=== PATIENT | male | born 1980 | race Two or more races ===

== ENCOUNTER → 2017-02-23 | Outpatient (REF) | payer OTHER | LOC: M SMT 09:50 | PROVIDERS: ATTEND Urology | DX: Z30.2 Encounter for sterilization (principal) ==

== ENCOUNTER 2017-06-29 11:24 | Emergency (ER) | payer OTHER ==
[2017-06-29] MEDS: AUGMENTIN 875 MG TAB PO (15:12)
== END 2017-06-29 15:14 | disposition home or self-care (01) ==
LOC: M ED 11:24
DX: J01.90 Acute sinusitis, unspecified (principal); J20.9 Acute bronchitis, unspecified; Z79.899 Other long term (current) drug therapy; J30.89 Other allergic rhinitis
CPT/HCPCS: 87804

== ENCOUNTER → 2017-08-23 | Outpatient (REF) | payer OTHER | LOC: M LAB REF 18:28 | DX: J02.9 Acute pharyngitis, unspecified (principal) | CPT/HCPCS: 87070 ==

== ENCOUNTER 2021-05-30 11:36 | Day surgery (SDC) | payer OTHER ==
[~2021-05-30] VITALS: Ht 175.3 cm; Wt 86.2 kg
[~2021-05-30 11:36] MED LIST: AUGM875T28 PO; BUPR150T5; DICY10CA13 PO; FLUO20CA22 PO; LIDOCAINE 2% 100MG/5ML SDV (FOR ANES.) As Ordered ONE; MUCI600T37 PO; NS 1,000 ML IV ONE; PRED20TA PO; PROAAER10 INH; SILD50TA; SILD50TA2 PO; propofoL 200 MG/20 ML VIAL As Ordered ONE
--- OUTSIDE RECORDS SUMMARY | 2021-05-30 11:41 | CCD | Continuity of Care Document ---
Author Author Negrito PHILLIPS Organization Unknown Address [address] [place] [address] Phone [phone] Care Team Providers Care Sociology Research Assistant Name Role Phone Umu Menjivar DO AUT Problems Description No Information Available Social History Type Date Description Comments Sex Unknown Allergies and adverse reactions Description No Information Available Medications Description No Information Available Immunizations Description No Information Available Vital Signs Description No Information Available Results Description No Information Available Procedures Description No Information Available Medical Devices Description No Information Available Encounters Description No Information Available Assessments Date Code Description Provider 05/11/2021 Z20.828 Contact with and (valdes spected) exposure to other viral communicable diseases BEN Sanchez Plan of Treatment No Information Available Functional Status Description No Information Available Mental Status Description No Information Available Referrals Description No Information Available
--- OUTSIDE RECORDS SUMMARY | 2021-05-30 11:41 | CCD | Continuity of Care Document ---
Author Author Negrito LARA Organization Unknown Address [address], [address] [place] [address] Phone [phone] Care Team Providers Care K 9 Handler/ Deputy Name Role Phone Israel Fernandes AUTM [phone] Umu Menjivar D.O. AUTM Problems Description No Information Available Social History Type Date Description Comments Sex Unknown ETOH Use 4 A Week beer Tobacco Use Start: Unknown Denies Smoking Recreational Drug Use Denies Drug Use Allergies and adverse reactions Description No Known Drug Allergies Medications Active Medications SIG Qnty Indications Ordering Provide r Date Fluoxetine HCL 20mg Capsules 1 tab by mouth every day Unknown Sildenafil Citrate 50mg Tablets as needed Unknown Fluticasone Propionate 50mcg/Act Suspension 1 spray to each nostril daily Unknown Dicyclomine HCL 10mg Capsules 1 by mouth every 6 hours as needed abdominal cramping Unkno wn Immunizations Description No Information Available Vital Signs Date Vital Result Comment 04/10/2021 9:39am BP Systolic 117 mmHg BP Diastolic 76 mmHg Heart Rate 64 /min Body Temperature 98.3 F Height 68.75 inches 5'8.75" Weight 121.75 lb BMI (Body Mass Index) 18.1 kg/m2 [place] Body Weight 154 lb Weight 55.226 kg BSA (Body Surface Area) 1.67 m2 Results Description No Information Available Procedures Date Code Description Status 04/10/2021 65250 Office/Outpatient New Moderate M DM 45-59 Minutes Completed Medical Devices Description No Information Available Encounters Type Date Location Provider Dx Diagnosis Office Visit 04/10/2021 9:45a [facility] BEN Nash Z12.11 Encounter for screening for malignant ne oplasm of colon Z80.0 Family history of malignant neoplasm of digestive organs Assessments Date Code Description Provider 04/10/2021 Z12.11 Encounter for screening for jeferson gnant neoplasm of colon BEN Whitehead 04/10/2021 Z80.0 Family history of malignant neop lasm of digestive organs BEN Whitehead Plan of Treatment Future Appointment(s):* 06/12/2021 10:00 am - BEN Whitehead at [facility] * 05/30/2021 1:30 pm - Geovany Hernández JR, MD at [facility] 04/10/2021 - BEN Whitehead* Z12.11 Encounter for screening for malignant neoplasm of colon * Z80.0 Family history of malignant neoplasm of digestive organs Functional Status Description No Information Available Mental Status Description No Information Available Referrals Refer to Dr Reason for Referral Status Appt Date Concepción Lara, P.A. COLONOSCOPY Scheduled 021 [address] [facility] [address] [place] [address] [place] [address] [phone]
--- OUTSIDE RECORDS SUMMARY | 2021-05-30 11:41 | CCD | Continuity of Care Document ---
Author Author Negrito BARBA Organization [place] [address] Phone [phone] Care Team Providers Care Crester Name Role Phone Umu Menjivar D.O. AUTM [facility] AUTM [phone] Problems Active Problems Provider Date Obsessive-compulsive disorder Umu Menjivar D.O. Ons et: 04/22/2017 Sciatica Umu Menjivar D.O. Onset: 2016 Low back pain Umu Menjivar D.O. Onset: 2016 Social History Type Date Description Comments Sex Unknown ETOH Use Rarely consumes alcohol Tobacco Use Start: Unknown Patient has never smoked Recreational Drug Use Denies Drug Use Exercise Type/Frequency Walks 5 times a week Sun Exposure Uses sunscreen Seat Belt/Car Seat Always uses seat belt Allergies, Adverse Reactions, Alerts Description No Known Drug Allergies Medications Active Medications SIG Qnty Indications Ordering Provide r Date Dicyclomine HCL 10mg Capsules take one tablet every 8 hours by mouth as needed for diarrhea. 90caps Umu Roblero D.O. 03/27/2021 Fluoxetine HCL 20mg Capsules 1 by mouth every day Unknown Medications Administered in Office Medication SIG Qnty Indications Ordering Provider Date Injection Ketorolac Tromethamine Per 15 MG (Toradol) Injection BEN Cross 09/22/2019 Immunizations CPT Code Status Date Vaccine Lot # [id number] Given 03/27/2021 Influenza Virus Vaccine, Quadrivalent, Slit Virus, Im Use [id number] Given 03/26/2020 Influenza Virus Vaccine, Quadrivalent, Split, Preservative Free [id number] Vital Signs Date Vital Result Comment 03/27/2021 8:34am BP Systolic 120 mmHg BP Diastolic 70 mmHg Height 68.2 inches 5'8.20" Weight 188.00 lb BMI (Body Mass Index) 28.4 kg/m2 Heart Rate 90 /min Respiratory Rate 16 /min Body Temperature 96.8 F O2 % BldC Oximetry 99 % [place] Body Weight 154 lb 07/06/2020 9:01am BP Systolic 124 mmHg BP Diastolic 72 mmHg Height 68.2 inches 5'8.20" Weight 190.38 lb BMI (Body Mass Index) 28.8 kg/m2 Heart Rate 91 /min Respiratory Rate 18 /min Body Temperature 97.8 F O2 % BldC Oximetry 99 % [place] Body Weight 154 lb Results Description No Information Available Procedures Description No Information Available Medical Devices Description No Information Available Encounters Description No Information Available Assessments Date Code Description Provider 03/27/2021 Z00.00 Encounter for genera l adult medical examination without abnormal findings BEN Randall 03/27/2021 F42.9 Obsessive-compulsive disorder, u nspecified BEN Randall 03/27/2021 Z80.0 Family history of malignant neop lasm of digestive organs BEN Randall Plan of Treatment Future Appointment(s):* 03/28/2022 9:00 am - BEN Randall at [facility] 03/27/2021 - BEN Randall* Z00.00 Encounter for general adult medical examination without abnormal findings* Comments:* Normal preventative exam * Follow up:* yearly * F42.9 Obsessive-compulsive disorder, unspecified * Z80.0 Family history of malignant neoplasm of digestive organs* Referral:* Geovany Hernández M.D., Surgery,General Functional Status Description No Information Available Mental Status Description No Information Available Referrals Refer to Reason for Referral Status Appt Date Geovany Hernández M.D. Family history of colon canc er in paternal grandfather whom in his late 40's early 50's. Negrito would like a routine screening colonoscopy Created [facility] [address] [place], [place] [address] [phone]
--- OUTSIDE RECORDS SUMMARY | 2021-05-30 11:41 | CCD | Continuity of Care Document ---
Author Author Negrito BARBA Organization Unknown [place] [address] Phone [phone] Care Team Providers Care Chili Maker Name Role Phone Umu Menjivar D.O. AUTM [phone] [facility] AUTM [phone] Geovany Hernández M.D. AUTM [phone] Problems Active Problems Provider Date Obsessive-compulsive disorder [...] Medication SIG Qnty Indications Ordering Provider Date Immunization Administration Single Or Co mbination Injection BEN Randall Injection Ketorolac Tromethamine Per 15 MG (Toradol) Injection BEN Cross 09/22/2019 Immunizations CPT Code Status Date Vaccine Lot # [id number] Given 03/27/2021 Influenza Virus Vaccine, Quadrivalent, Slit Virus, Im Use [id number] Given 03/26/2020 Influenza Virus Vaccine, Quadrivalent, Split, Preservative Free [id number] Vital Signs Date Vital Result Comment 03/27/2021 8:34am BP Systolic 120 mmHg BP Diastolic 70 mmHg Height 68.2 inches 5'8.20" Weight 188.00 lb BMI (Body Mass Index) 28.4 kg/m2 Heart Rate 90 /min Respiratory Rate 16 /min Body Temperature 96.8 F O2 % BldC Oximetry 99 % [place] Body Weight 154 lb 07/06/2020 9:01am BP Systolic 124 mmHg BP Diastolic 72 mmHg Height 68.2 inches 5'8.20" Weight 190.38 lb BMI (Body Mass Index) 28.8 kg/m2 Heart Rate 91 /min Respiratory Rate 18 /min Body Temperature 97.8 F O2 % BldC Oximetry 99 % [place] Body Weight 154 lb Results Description No Information Available Procedures Date Code Description Status 03/27/2021 71355 Preventive Visit Est 40-64 Yrs C ompleted Medical Devices Description No Information Available Encounters Type Date Location Provider Dx Diagnosis Office Visit 03/27/2021 8:30a [facility] BEN Randall Z00.00 Encntr for general adult med ical exam w/o abnormal findings F42.9 Obsessive-compulsive disorde r, unspecified Z80.0 Family history of malignant neoplasm of digestive organs Z23 Encounter for immunization Assessments Date Code Description Provider 03/27/2021 Z00.00 Encntr for general adult medical exam w/o abnormal findings BEN Randall 03/27/2021 F42.9 Obsessive-compulsive disorder, u nspecified BEN Randall 03/27/2021 Z80.0 Family history of malignant neop lasm of digestive organs BEN Randall 03/27/2021 Z23 Encounter for immunization BEN Medina Plan of Treatment Future Appointment(s):* 03/28/2022 9:00 am - BEN Randall at [facility] Functional Status Description No Information Available Mental Status Description No Information Available Referrals Refer to Reason for Referral Status Appt Date Geovany Hernández M.D. Family history of colon canc er in paternal grandfather whom in his late 40's early 50's. Negrito would like a routine screening colonoscopy Sent [address] [id number] [phone]
--- OUTSIDE RECORDS SUMMARY | 2021-05-30 11:41 | CCD | Continuity of Care Document ---
Author Author Negrito PHILLIPS Organization Unknown Address [address] [place] [address] Phone [phone] Care Team Providers Care Order Runner Name Role Phone Umu Menjivar DO AUT [phone] Problems Description No Information Available Social History [...]
--- OUTSIDE RECORDS SUMMARY | 2021-05-30 11:41 | CCD | Continuity of Care Document ---
Author Negrito Gonzales Organization Unknown Address [address] [facility], [address] [place] [address] Phone [phone] Care Team Providers Care Chancellor Name Role Phone Israel Fernandes AUTM [phone] Umu Menjivar D.O. AUTM [phone] Problems Description No Information Available Social [...] lb BMI (Body Mass Index) 18.1 kg/m2 [place] Body Weight 154 lb Weight 55.226 kg BSA (Body Surface Area) 1.67 m2 Results Description No Information Available Procedures Description No Information Available Medical Devices Description No Information Available Encounters Description No Information Available Assessments Date Code Description Provider 04/10/2021 Z12.11 Encounter for screening for jeferson gnant neoplasm of colon BEN Whitehead 04/10/2021 Z80.0 Family history of malignant neop lasm of digestive organs BEN Whitehead Plan of Treatment Future Appointment(s):* 06/12/2021 10:00 am - BEN Whitehead at [facility] * 05/30/2021 1:30 pm - Geovany Hernández JR, MD at [facility] 04/10/2021 - BEN Whitehead* Z12.11 Encounter for screening for malignant neoplasm of colon * Z80.0 Family history of malignant neoplasm of digestive organs Functional Status Description No Information Available Mental Status Description No Information Available Referrals Refer to Reason for Referral Status Appt Date Concepción Lara, P.A. COLONOSCOPY Scheduled 021 [address] [facility] [address] [place] [address] [place], [place] [id number] [phone]
--- OUTSIDE RECORDS SUMMARY | 2021-05-30 11:42 | CCD ---
Author Author [facility] Organization [facility] Address Unknown Phone Unavailable Care Team Providers Care Library Technology Instructor Name Role Phone CECILIO CALLAHAN MD Unavailable Unavailable CECILIO CALLAHAN MD Unavailable Unavailable CECILIO CALLAHAN MD Unavailable Unavailable CECILIO CALLAHAN MD Unavailable Unavailable CECILIO CALLAHAN MD Unavailable Unavailable CECILIO CALLAHAN MD Unavailable Unavailable CECILIO CALLAHAN MD Unavailable Unavailable CECILIO CALLAHAN MD Unavailable Unavailable CECILIO CALLAHAN MD Unavailable Unavailable CECILIO CALLAHAN MD Unavailable Unavailable CECILIO CALLAHAN MD Unavailable Unavailable CECILIO CALLAHAN MD Unavailable Unavailable CECILIO CALLAHAN MD Unavailable Unavailable CECILIO CALLAHAN MD Unavailable Unavailable CECILIO CALLAHAN MD Unavailable Unavailable CECILIO CALLAHAN MD Unavailable Unavailable CECILIO CALLAHAN MD Unavailable Unavailable CECILIO CALLAHAN MD Unavailable Unavailable CECILIO CALLAHAN MD Unavailable Unavailable CECILIO CALLAHAN MD Unavailable Unavailable CECILIO CALLAHAN MD Unavailable Unavailable CECILIO CALLAHAN MD Unavailable Unavailable CECILIO CALLAHAN MD Unavailable Unavailable CECILIO CALLAHAN MD Unavailable Unavailable CECILIO CALLAHAN MD Unavailable Unavailable CECILIO CALLAHAN MD Unavailable Unavailable CECILIO CALLAHAN MD Unavailable Unavailable CECILIO CALLAHAN MD Unavailable Unavailable CHROSTOWSKI, CECILIO MD Unavailable Unavailable CHROSTOWSKI, CECILIO MD Unavailable Unavailable CHROSTOWSKI, CECILIO MD Unavailable Unavailable CHROSTOWSKI, CECILIO MD Unavailable Unavailable CHROSTOWSKI, CECILIO MD Unavailable Unavailable CHROSTOWSKI, CECILIO MD Unavailable Unavailable CHROSTOWSKI, CECILIO MD Unavailable Unavailable CHROSTOWSKI, CECILIO MD Unavailable Unavailable CHROSTOWSKI, CECILIO MD Unavailable Unavailable CHROSTOWSKI, CECILIO MD Unavailable Unavailable CHROSTOWSKI, CECILIO MD Unavailable Unavailable MARCUS-GARRY, MEDARDO DO Unavailable Unavailable MARCUS-GARRY, MEDARDO DO Unavailable Unavailable MARCUS-GARRY, MEDARDO DO Unavailable Unavailable MARCUS-GARRY, MEDARDO DO Unavailable Unavailable MARCUS-GARRY, MEDARDO DO Unavailable Unavailable MARCUS-GARRY, MEDARDO DO Unavailable Unavailable MARCUS-GARRY, MEDARDO DO Unavailable Unavailable MARCUS-GARRY, MEDARDO DO Unavailable Unavailable MARCUS-GARRY, MEDARDO DO Unavailable Unavailable MARCUS-GARRY, MEDARDO DO Unavailable Unavailable MARCUS-GARRY, MEDARDO DO Unavailable Unavailable MARCUS-GARRY, MEDARDO DO Unavailable Unavailable MARCUS-GARRY, MEDARDO DO Unavailable Unavailable MARCUS-GARRY, MEDARDO DO Unavailable Unavailable MARCUS-GARRY, MEDARDO DO Unavailable Unavailable MARCUS-GARRY, MEDARDO DO Unavailable Unavailable MARCUS-GARRY, MEDARDO DO Unavailable Unavailable MARCUS-GARRY, MEDARDO DO Unavailable Unavailable MARCUS-GARRY, MEDARDO DO Unavailable Unavailable MARCUS-GARRY, MEDARDO DO Unavailable Unavailable MARCUS-GARRY, MEDARDO DO Unavailable Unavailable MARCUS-GARRY, MEDARDO DO Unavailable Unavailable MARCUS-GARRY, MEDARDO DO Unavailable Unavailable MARCUS-GARRY, MEDARDO DO Unavailable Unavailable MARCUS-GARRY, MEDARDO DO Unavailable Unavailable MARCUS-GARRY, MEDARDO DO Unavailable Unavailable MARCUS-GARRY, MEDARDO DO Unavailable Unavailable MARCUS-GARRY, MEDARDO DO Unavailable Unavailable MARCUS-GARRY, MEDARDO DO Unavailable Unavailable MARCUS-GARRY, MEDARDO DO Unavailable Unavailable MRACUS-GARRY, MEDARDO DO Unavailable Unavailable MARCUS-GARRY, MEDARDO DO Unavailable Unavailable MARCUS-GARRY, MEDARDO DO Unavailable Unavailable MARCUS-GARRY, MEDARDO DO Unavailable Unavailable MARCUS-GARRY, MEDARDO DO Unavailable Unavailable MARCUS-GARRY, MEDARDO DO Unavailable Unavailable MARCUS-GARRY, MEDARDO DO Unavailable Unavailable MARCUS-GARRY, MEDARDO DO Unavailable Unavailable MARCUS-GARRY, MEDARDO DO Unavailable Unavailable MARCUS-GARRY, MEDARDO DO Unavailable Unavailable MARCUS-GARRY, MEDARDO DO Unavailable Unavailable MARCUS-GARRY, MEDARDO DO Unavailable Unavailable MARCUS-GARRY, MEDARDO DO Unavailable Unavailable MARCUS-GARRY, MEDARDO DO Unavailable Unavailable MARCUS-GARRY, MEDARDO DO Unavailable Unavailable MARCUS-GARRY, MEDARDO DO Unavailable Unavailable MARCUS-GARRY, MEDARDO DO Unavailable Unavailable MARCUS-GARRY, MEDARDO DO Unavailable Unavailable MARCUS-GARRY, MEDARDO DO Unavailable Unavailable MARCUS-GARRY, MEDARDO DO Unavailable Unavailable MARCUS-GARRY, MEDARDO DO Unavailable Unavailable MARCUS-GARRY, MEDARDO DO Unavailable Unavailable MARCUS-GARRY, MEDARDO DO Unavailable Unavailable MARCUS-GARRY, MEDARDO DO Unavailable Unavailable MARCUS-GARRY, MEDARDO DO Unavailable Unavailable MARCUS-GARRY, MEDARDO DO Unavailable Unavailable MARCUS-GARRY, MEDARDO DO Unavailable Unavailable MARCUS-GARRY, MEDARDO DO Unavailable Unavailable MARCUS-GARRY, MEDARDO DO Unavailable Unavailable MARCUS-GARRY, MEDARDO DO Unavailable Unavailable MARCUS-GARRY, MEDARDO DO Unavailable Unavailable MARCUS-GARRY, MEDARDO DO Unavailable Unavailable MARCUS-GARRY, MEDARDO DO Unavailable Unavailable MARCUS-GARRY, MEDARDO DO Unavailable Unavailable MARCUS-GARRY, MEDARDO DO Unavailable Unavailable MARCUS-GARRY, MEDARDO DO Unavailable Unavailable MARCUS-GARRY, MEDARDO DO Unavailable Unavailable MARCUS-GARRY, MEDARDO DO Unavailable Unavailable MARCUS-GARRY, MEDARDO DO Unavailable Unavailable MARCUS-GARRY, MEDARDO DO Unavailable Unavailable MARCUS-GARRY, MEDARDO DO Unavailable Unavailable MARCUS-GARRY, MEDARDO DO Unavailable Unavailable MARCUS-GARRY, MEDARDO DO Unavailable Unavailable MARCUS-GARRY, MEDARDO DO Unavailable Unavailable MARCUS-GARRY, MEDARDO DO Unavailable Unavailable MARCUS-GARRY, MEDARDO DO Unavailable Unavailable MARCUS-GARRY, MEDARDO DO Unavailable Unavailable MARCUS-GARRY, MEDARDO DO Unavailable Unavailable MARCUS-GARRY, MEDARDO DO Unavailable Unavailable MARCUS-GARRY, MEDARDO DO Unavailable Unavailable MARCUS-GARRY, MEDARDO DO Unavailable Unavailable MARCUS-GARRY, MEDARDO DO Unavailable Unavailable MARCUS-GARRY, MEDARDO DO Unavailable Unavailable MARCUS-GARRY, MEDARDO DO Unavailable Unavailable MARCUS-GARRY, MEDARDO DO Unavailable Unavailable O'janis, A Israel PA Unavailable Unavailable O'janis, A Israel PA Unavailable Unavailable O'janis, A Israel PA Unavailable Unavailable O'janis, A Israel PA Unavailable Unavailable O'janis, A Israel PA Unavailable Unavailable O'janis, A Israel PA Unavailable Unavailable O'janis, A Israel PA Unavailable Unavailable O'janis, A Israel PA Unavailable Unavailable O'janis, A Israel PA Unavailable Unavailable O'janis, A Israel PA Unavailable Unavailable O'janis, A Israel PA Unavailable Unavailable O'janis, A Israel PA Unavailable Unavailable O'janis, A Israel PA Unavailable Unavailable O'janis, A Israel PA Unavailable Unavailable O'janis, A Israel PA Unavailable Unavailable O'janis, A Israel PA Unavailable Unavailable O'janis, A Israel PA Unavailable Unavailable O'janis, A Israel PA Unavailable Unavailable O'janis, A Israel PA Unavailable Unavailable O'janis, A Israel PA Unavailable Unavailable O'janis, A Israel PA Unavailable Unavailable O'janis, A Israel PA Unavailable Unavailable O'janis, A Israel PA Unavailable Unavailable O'janis, A Israel PA Unavailable Unavailable O'janis, A Israel PA Unavailable Unavailable O'janis, A Israel PA Unavailable Unavailable O'janis, A Israel PA Unavailable Unavailable O'janis, A Israel PA Unavailable Unavailable O'janis, A Israel PA Unavailable Unavailable O'janis, A Israel PA Unavailable Unavailable O'janis, A Israel PA Unavailable Unavailable O'janis, A Israel PA Unavailable Unavailable O'janis, A Israel PA Unavailable Unavailable Lara, L Concepción RPA Unavailable Unavailable Lara, L Concepción RPA Unavailable Unavailable Lara, L Concepción RPA Unavailable Unavailable Lara, L Concepción RPA Unavailable Unavailable Lara, L Concepción RPA Unavailable Unavailable Lara, L Concepción RPA Unavailable Unavailable Lara, L Concepción RPA Unavailable Unavailable Lara, L Concepción RPA Unavailable Unavailable Lara, L Concepción RPA Unavailable Unavailable Lara, L Concepción RPA Unavailable Unavailable Lara, L Concepción RPA Unavailable Unavailable Lara, L Concepción RPA Unavailable Unavailable Lara, L Concepción RPA Unavailable Unavailable Lara, L Concepción RPA Unavailable Unavailable Lara, L Concepción RPA Unavailable Unavailable Lara, L Concepción RPA Unavailable Unavailable Lara, L Concepción RPA Unavailable Unavailable Lara, L Concepción RPA Unavailable Unavailable Lara, L Concepción RPA Unavailable Unavailable Lara, L Concepción RPA Unavailable Unavailable Lara, L Concepción RPA Unavailable Unavailable Lara, L Concepción RPA Unavailable Unavailable Lara, L Concepción RPA Unavailable Unavailable Lara, L Concepción RPA Unavailable Unavailable Lara, L Concepción RPA Unavailable Unavailable Lara, L Concepción RPA Unavailable Unavailable Lara, L Concepción RPA Unavailable Unavailable Lara, L Concepción RPA Unavailable Unavailable Lara, L Concepción RPA Unavailable Unavailable Lara, L Concepción RPA Unavailable Unavailable Lara, L Concepción RPA Unavailable Unavailable Lara, L Concepción RPA Unavailable Unavailable Re-disclosure Warning The records that you are about to access may contain information from federally-assisted alcohol or drug abuse programs. If such information is present, then the following federally mandated warning applies: This information has been disclosed to you from records protected by federal confidentiality rules (42 CFR part 2). The federal rules prohibit you from making any further disclosure of this information unless further disclosure is expressly permitted by the written consent of the person to whom it pertains or as otherwise permitted by 42 CFR part 2. A general authorization for the release of medical or other information is NOT sufficient for this purpose. The Federal rules restrict any use of the information to criminally investigate or prosecute any alcohol or drug abuse patient.The records that you are about to access may contain highly sensitive health information, the redisclosure of which is protected by Article 27-F of the [place] Public Health law. If you continue you may have access to information: Regarding HIV / AIDS; Provided by facilities licensed or operated by the [place] Office of Mental Health; or Provided by the [place] Office for People With Developmental Disabilities. If such information is present, then the following [place] mandated warning applies: This information has been disclosed to you from confidential records which are protected by state law. State law prohibits you from making any further disclosure of this information without the specific written consent of the person to whom it pertains, or as otherwise permitted by law. Any unauthorized further disclosure in violation of state law may result in a fine or fci sentence or both. A general authorization for the release of medical or other information is NOT sufficient authorization for further disc losure. Family History Family Member Name Family Member Gender Family Member Status Date o f Status Description Data Source(s) Unknown Unknown Problem [facility] ([facility]) Unknown Male Problem [facility] [place] Unknown Unknown Problem [facility] ([facility] Encounters Encounter Providers Location Date Indications Data Source(s ) Outpatient Attender: Concepción Gonzalez/Kevin/Hi/Meagan knox 04/10/2021 09:45:00 AM EDT [facility] ([facility] Outpatient Attender: Israel CONTRERAS [facility] 03/27/2021 08:30:00 AM EDT [facility] ([facility] Outpatient Attender: CECILIO CALLAHAN MD Main Office 07/09/2020 07:45:00 AM EST [facility] ([facility]) Outpatient Attender: MEDARDO FREEMAN DO [facility] 07/06/2020 08:00:00 AM EST [facility] ([facility]) Immunizations Vaccine Date Status Description Data Source(s) New in 2012. IIV4 03/27/2021 09:13:00 AM EDT completed [facility] ([facility]) COVID-19 VACCINE Pfizer 09/28/2020 12:00:00 AM EDT completed [facility] Vaccine Series Complete: YESThis Data wa s Submitted to [facility] Via [employer]. COVID-19 VACCINE Pfizer 09/07/2020 12:00:00 AM EST completed [facility] Vaccine Series Complete: NOThis Data was Submitted to [facility] Via [employer]. Medications Medication Brand Name Start Date Product Form Dose Route Admi nistrative Instructions Pharmacy Instructions Status Indications Reaction Description Data Source(s) 10 mg 03/28/2021 12:00:00 AM EDT capsule 90 TAKE ONE CAPSULE BY MOUTH EVERY 8 HOURS NEEDED FOR DIARRHEA TAKE ONE CAPSULE BY MOUTH EVERY 8 HOURS NEEDED FOR DIARRHEA SOLD: 03/30/2021 [facility] Dicyclomine Hydrochloride 10 MG Oral Capsule Dicyclomine HCL 03/27/2021 12:00:00 AM EDT ORAL active MED[facility] ([facility]) Immunization Administration Single Or Combination 03/27/2021 12:00:00 AM EDT completed [facility] ([facility]) Medication administered onsite 50 mg 03/26/2021 12:00:00 AM EDT tablet 6 TAKE ONE TABLET BY MOUTH EVERY DAY NEEDED TAKE ONE TABLET BY MOUTH EVERY DAY NEEDED SOLD: 03/30/2021 [facility] 50 mg 02/11/2021 12:00:00 AM EDT tablet 6 TAKE ONE TABLET BY MOUTH ONCE DAILY NEEDED TAKE ONE TABLET BY MOUTH ONCE DAILY NEEDED SOLD: 02/14/20 [facility] 50 mg 01/01/2021 12:00:00 AM EDT tablet 6 TAKE ONE TABLET BY MOUTH EVERY DAY NEEDED TAKE ONE TABLET BY MOUTH EVERY DAY NEEDED SOLD: 01/01/2021 [facility] Insurance Providers Payer name Policy type / Coverage type Policy ID Covered green party ID Covered green party's relationship to holland Policy [place] Plan Information [facility] [id number] [id number] [facility] [id number] [employer] [id number] [facility] Health Maintenance Organization (HMO) [id number] Family Dependent [id number] [employer] [id number] Commercial [employer] urance [employer]. .[id number] Commercial Insur ance [employer]. .[id number] [employer] .[id number] Commercial Insu gopal Co. [id number] [employer] [id number] S elf [id number] [employer] [id number] S elf [id number] [employer] [id number] Family Dependent [id number] [employer] [id number] S elf [id number] [employer] PPO O [id number] P [id number] [employer] [id number] Family Dependent Problems, Conditions, and Diagnoses No Information Surgeries/Procedures Procedure Description Date Indications Data Source(s) OFFICE OUTPATIENT NEW 45 MINUTES 04/10/2021 12:00:00 A M EDT [facility] ([facility] ) PERIODIC PREVENTIVE MED EST PATIENT 40-64YRS 12:00:00 AM EDT MED[facility] ([facility]) BRNCDILAT RSPSE SPMTRY PRE&POST-BRNCDILAT ADMN 021 12:00:00 AM EST [facility] ([facility]) Omt 7-8 Body Regions 07/06/2020 12:00:00 AM EST [facility] ([facility]) Results ID Date Data Source [id number] 05/11/2021 12:00:00 AM EST [facility] Name Value Range Interpretation Code Description Data Kerri rce(s) Supporting Document(s) SARS-CoV2 Rapid Antigen Negative [facility]MS This lab was ordered by [facility] and reported by [facility]. Procedure Social History Code Duration Value Status Description Data Source(s ) Smoking 07/09/2020 12:00:00 AM EST Patient has never smoked co mpleted Patient has never smoked [facility] ([facility] ) Vital Signs ID Date Data Source UNK Name Value Range Interpretation Code Description Data Source(s) Systolic blood pressure 117 mm[Hg] 117 mm[Hg] [facility] Diastolic blood pressure 76 mm[Hg] 76 mm[Hg] [facility] ([facility]) Heart rate 64 /min 64 /min [facility] Body temperature 98.3 [degF] 98.3 [degF] [facility] ([facility]) Body height 68.75 [in_i] 68.75 [in_i] [facility] ([facility]) 5'8.75" Body weight 121.75 [lb_av] 121.75 [lb_av] [facility] T ([facility]) Body mass index (BMI) [Ratio] 18.1 kg/m2 18.1 k g/m2 [facility] ([facility]) [place] body weight 154 [lb_av] 154 [lb_av] [facility] T ([facility]) Body weight 55.226 kg 55.226 kg [facility] ([facility]) Body surface area Derived from formula 1.67 m2 1.67 m2 [facility] ([facility]) Oxygen saturation in Arterial blood by Pulse oximetry 99 % 99 % [facility] ([facility]) [place] body weight 154 [lb_av] 154 [lb_av] [facility] T ([facility]) Systolic blood pressure 120 mm[Hg] 120 mm[Hg] [facility]) Diastolic blood pressure 70 mm[Hg] 70 mm[Hg] [facility] ([facility]) Body height 68.2 [in_i] 68.2 [in_i] [facility] ([facility]) 5'8.20" Body weight 188.00 [lb_av] 188.00 [lb_av] [facility] T ([facility]) Body mass index (BMI) [Ratio] 28.4 kg/m2 28.4 k g/m2 [facility] ([facility]) Heart rate 90 /min 90 /min [facility] ([facility]) Respiratory rate 16 /min 16 /min [facility] ( [facility]) Body temperature 96.8 [degF] 96.8 [degF] [facility] ([facility]) Body weight 189.12 [lb_av] 189.12 [lb_av] [facility] T ([facility]) Body height 68.75 [in_i] 68.75 [in_i] [facility] 5'8.75" Heart rate 66 /min 66 /min [facility] Respiratory rate 16 /min 16 /min [facility] ( [facility]) Systolic blood pressure 119 mm[Hg] 119 mm[Hg] M EDENT ([facility]) Diastolic blood pressure 77 mm[Hg] 77 mm[Hg] [facility] ([facility]) Body mass index (BMI) [Ratio] 28.1 kg/m2 28.1 k g/m2 [facility] ([facility]) Systolic blood pressure 124 mm[Hg] 124 mm[Hg] ED[facility] ([facility]) Diastolic blood pressure 72 mm[Hg] 72 mm[Hg] [facility] ([facility]) Body height 68.2 [in_i] 68.2 [in_i] [facility] ([facility]) 5'8.20" Body weight 190.38 [lb_av] 190.38 [lb_av] MED[facility] T ([facility]) Body mass index (BMI) [Ratio] 28.8 kg/m2 28.8 k g/m2 [facility] ([facility]) Heart rate 91 /min 91 /min [facility] ([facility]) Respiratory rate 18 /min 18 /min [facility] ( [facility]) Body temperature 97.8 [degF] 97.8 [degF] [facility] ([facility]) Oxygen saturation in Arterial blood by Pulse oximetry 99 % 99 % [facility] ([facility]) [place] body weight 154 [lb_av] 154 [lb_av] MEDEN T ([facility])
--- NOTE | 2021-05-30 12:32 | ROOR ---
Patient Name: Negrito Carter Procedure Date: 05/30/2021 12:19 PM Date of : 1980 Age: 41 Room: [facility] Gender: Male Note Status: Finalized Procedure: Colonoscopy Indications: Screening in patient at increased risk: Family history of 1st-degree relative with colorectal cancer before age 60 years Providers: Geovany Hernández Jr, MD Referring MD: Umu FREEMAN DO Requesting Provider: Medicines: Propofol per Anesthesia Complications: No immediate complications. Procedure: Pre-Anesthesia Assessment: - Prior to the procedure, a History and Physical was performed, and patient medications and allergies were reviewed. The patient is competent. The risks and benefits of the procedure and the sedation options and risks were discussed with the patient. All questions were answered and informed consent was obtained. Patient identification and proposed procedure were verified by the physician and the nurse in the pre-procedure area and in the procedure room. Mental Status Examination: alert and oriented. Airway Examination: normal oropharyngeal airway and neck mobility. Respiratory Examination: clear to auscultation. CV Examination: normal. ASA Grade Assessment: II - A patient with mild systemic disease. After reviewing the risks and benefits, the patient was deemed in satisfactory condition to undergo the procedure. The anesthesia plan was to use moderate sedation / analgesia (conscious sedation). Immediately prior to administration of medications, the patient was re-assessed for adequacy to receive sedatives. The heart rate, respiratory rate, oxygen saturations, blood pressure, adequacy of pulmonary ventilation, and response to care were monitored throughout the procedure. The physical status of the patient was re-assessed after the procedure. The Colonoscope was introduced through the anus and advanced to the cecum, identified by appendiceal orifice and ileocecal valve. The patient tolerated the procedure well. The quality of the bowel preparation was adequate. Findings: The rectum, recto-sigmoid colon, sigmoid colon, descending colon, transverse colon, ascending colon, cecum, appendiceal orifice and ileocecal valve appeared normal. Impression: - The rectum, recto-sigmoid colon, sigmoid colon, descending colon, transverse colon, ascending colon, cecum, appendiceal orifice and ileocecal valve are normal. - No specimens collected. Recommendation: - Discharge patient to home (ambulatory). - Repeat colonoscopy in 5 years for screening purposes. Procedure Code(s): --- Professional --- 31944, Colonoscopy, flexible; diagnostic, including collection of specimen(s) by brushing or washing, when performed (separate procedure) Diagnosis Code(s): --- Professional --- Z80.0, Family history of malignant neoplasm of digestive organs CPT copyright 2019 [employer]. All rights reserved. The codes documented in this report are preliminary and upon sanitary engineer review may be revised to meet current compliance requirements. Geovany Hernández MD Geovany Hernández Jr, MD 05/30/2021 12:32:06 PM Electronically signed by Geovany Hernández Jr, MD Number of Addenda: 0 Note Initiated On: 05/30/2021 12:19 PM Estimated Blood Loss: Estimated blood loss: none.
[2021-05-30 13:00] VITALS: BP 128/75
== END 2021-05-30 13:04 | disposition home or self-care (01) ==
LOC: M OPP 11:36
PROVIDERS: ATTEND Surgery
DX: Z12.11 Encounter for screening for malignant neoplasm of colon (principal); Z80.0 Family history of malignant neoplasm of digestive organs; Z79.899 Other long term (current) drug therapy

== ENCOUNTER → 2022-09-11 | Outpatient (CLI) | payer OTHER ==
[~2022-09-11] MED LIST changes: +BUPR-71; -BUPR150T5; -LIDOCAINE 2% 100MG/5ML SDV (FOR ANES.) As Ordered ONE; -NS 1,000 ML IV ONE; -propofoL 200 MG/20 ML VIAL As Ordered ONE
== END ==
LOC: M PLAIMG 12:46
PROVIDERS: ATTEND Physician Assistant
DX: M47.12 Other spondylosis with myelopathy, cervical region (principal)

== ENCOUNTER → 2022-11-03 | Outpatient (REF) | payer OTHER | LOC: M LAB REF 17:17 → EEVIPCON 17:17 | PROVIDERS: ATTEND Physician Assistant | DX: J34.0 Abscess, furuncle and carbuncle of nose (principal) ==

== ENCOUNTER → 2023-04-09 | Outpatient (REF) | payer OTHER ==
[~2023-04-09] MED LIST changes: +DICY-61 PO; -DICY10CA13 PO
== END ==
LOC: M LAB REF 17:42
PROVIDERS: ATTEND Family Medicine
DX: L03.211 Cellulitis of face (principal)